=== PATIENT | female | born 1950 | race African-American/Black ===

== ENCOUNTER 2019-02-19 15:11 | Inpatient (IN) ==
[2019-02-19] MEDS ORDERED: AZITHROMYCIN INJ 500 MG in SODIUM CHLORIDE 0.9% 250 ML IV STA (15:30)
[2019-02-19] MEDS ORDERED: ALBUTEROL 2.5 MG/3 ML NEB RESP TX SCH (15:30)
[2019-02-19] MEDS ORDERED: methylPREDNISolone SOD SUC 125 MG/2 ML VIAL IV STA (15:30)
[2019-02-19] MEDS ORDERED: cefTRIAXone 1,000 MG in SODIUM CHLORIDE 0.9% 100 ML IV STA (15:30)
[2019-02-19] MEDS ORDERED: ONDANSETRON 4 MG/2 ML VIAL IV STA (15:30)
[2019-02-19 15:52] LABS: Basophils % 0.2 % (0.0-0.8); Eosinophils # 0.1 10*3/uL (0.0-0.87); Eosinophils % 0.6 % (0.00-10.9); Hematocrit 35.9 VOL% (35.7-47.0); Hemoglobin 11.7 GM/DL (12.0-16.0); Immature Granulocytes % 0.9 %; Immature Granulocytes Absolute 0.09 #; Lymphocytes # 1.9 10*3/uL (1.4-4.0); Lymphocytes % 19.8 % (21.3-54.2); Mean Corpuscular HGB Conc 32.6 GM/DL (32-36); Mean Corpuscular Volume 86.3 FL (87-102); Mean Platelet Volume 9.7 FL (9.6-12.0); Monocytes % 8.8 % (1.7-12.7); Neutrophils % 69.7 % (38.7-73.9); Platelet Count 592 T/CUMM (130-400); Red Blood Count 4.16 MC/CUMM (3.8-5.5); Red Cell Distribution Width 14.4 % (9.3-17.3); White Blood Count 9.6 T/CUMM (4-12)
[2019-02-19 15:58] LABS: Apearance,Urine CLEAR (Clear); Bilirubin,Urine Negative (Negative); Blood, Urine Negative (Negative); Glucose,Urine (UA) Negative (Negative); Ketones,Urine Negative (Negative); Mucus,Urine Occasional /LPF (Occasional); Nitrite,Urine Negative (Negative); Protein,Urine Negative; RBC,Urine <1 /HPF (0-4); Squamous Epithelial Cell,Urine Occasional /HPF (0-10); Urine Color Yellow (Yellow); Urine Urobilinogen < 2.0 EU/DL (0.2-1.0); WBC,Urine 1 /HPF (0-6)
[2019-02-19 16:02] LABS: PT Patient Result 10.7 SECS; Partial Thromboplastin Time 23.7 SECS (0-40)
[2019-02-19 16:08] LABS: Alanine Aminotransferase 52 U/L (13-56); Albumin 3.1 G/DL (3.4-5.0); Alkaline Phosphatase 109 U/L (45-117); Aspartate Amino Transferase 23 U/L (0-37); Bilirubin,Total < 0.39 MG/DL (0.2-1.0); Blood Urea Nitrogen 11 MG/DL (7-18); Calcium 9.3 MG/DL (8.5-10.1); Glucose 114 MG/DL (74-106); Osmolality,Calculated 278.4 MOS/KG (273-304); Total Protein 7.8 G/DL (6.4-8.3); Troponin I < 0.015 NG/ML (0.00-0.045)
[2019-02-19] MEDS ORDERED: POTASSIUM BICARB EFFERVESCENT 25 MEQ TABLET PO ONE (16:25)
[2019-02-19] MEDS ORDERED: ONDANSETRON 4 MG/2 ML VIAL IV PRN (17:25)
[2019-02-19] MEDS ORDERED: ACETAMINOPHEN 325 MG TABLET PO PRN (17:25)
[2019-02-19] MEDS ORDERED: POTASSIUM CHLORIDE 20 MEQ TABLET PO PRN (17:30)
[2019-02-19] MEDS ORDERED: hydrALAZINE 20 MG/1 ML VIAL IV PRN (17:40)
[2019-02-19] MEDS ORDERED: ALBUTEROL 1.25 MG/3 ML NEB RESP TX PRN (17:43)
[2019-02-19 18:20] LABS: ABG Base Excess 2.4 MMOL/L (-2.5-2.5); ABG HCO3 26.5 MMOL/L (20-26); ABG Oxygen Saturation 94.8 % (95-100); ABG PCO2 43.1 MM HG (35-48); ABG PH 7.411 (7.35-7.45); ABG PO2 75.8 MM HG (80-95); ABG TCO2 24.2 MMOL/L (23-27); Allen Test Positive
[2019-02-19] MEDS ORDERED: LEVALBUTEROL 0.63 MG/3 ML NEB RESP TX SCH (19:00)
[2019-02-19] MEDS ORDERED: TUBERCULIN SKIN TEST 0.1 ML SYRINGE INTRADERM ONE (19:00)
[2019-02-19] MEDS: ALBUTEROL/IPRATROPIUM 3 ML NEB RESP TX SCH ×2 (19:14→23:05)
[2019-02-19] MEDS: SODIUM CHLORIDE 0.9% 1,000 ML IV SCH (21:43)
[2019-02-19] MEDS: BENZONATATE 100 MG CAPSULE PO SCH (21:44)
[2019-02-19] MEDS: ROSUVASTATIN 20 MG TABLET PO SCH (21:44)
[2019-02-20] MEDS: ALBUTEROL/IPRATROPIUM 3 ML NEB RESP TX SCH ×6 (03:03→23:40)
[2019-02-20 06:42] LABS: Basophils % 0.2 % (0.0-0.8); Hematocrit 33.3 VOL% (35.7-47.0); Immature Granulocytes % 0.6 %; Immature Granulocytes Absolute 0.07 #; Lymphocytes # 1.1 10*3/uL (1.4-4.0); Lymphocytes % 10.2 % (21.3-54.2); Mean Corpuscular Volume 86.5 FL (87-102); Mean Platelet Volume 10.1 FL (9.6-12.0); Monocytes % 3.3 % (1.7-12.7); Neutrophils % 85.7 % (38.7-73.9); Platelet Count 551 T/CUMM (130-400); Red Blood Count 3.85 MC/CUMM (3.8-5.5); Red Cell Distribution Width 14.6 % (9.3-17.3); White Blood Count 10.9 T/CUMM (4-12)
[2019-02-20 07:14] LABS: Calcium 8.9 MG/DL (8.5-10.1); Osmolality,Calculated 283.3 MOS/KG (273-304); Risk Ratio 3.97; Thyroid Stimulating Hormone 0.507 uIU/ml (0.358-3.74); VLDL CHOLESTEROL 12.6 MG/DL
[2019-02-20] MEDS: PANTOPRAZOLE 40 MG TABLET PO SCH (09:17)
[2019-02-20] MEDS: amLODIPine 10 MG TABLET PO SCH (09:17)
[2019-02-20] MEDS: ENOXAPARIN 40 MG/0.4 ML SYRINGE SUBCUT SCH (09:18)
[2019-02-20] MEDS: BENZONATATE 100 MG CAPSULE PO SCH ×3 (09:18→20:25)
[2019-02-20] MEDS: SODIUM CHLORIDE 0.9% 1,000 ML IV SCH (15:17)
[2019-02-20] MEDS: methylPREDNISolone SOD SUC 40 MG/1 ML VIAL IV SCH (15:17)
[2019-02-20] MEDS: cefTRIAXone 1,000 MG in SYRINGE 1 EACH IV SCH (17:01)
[2019-02-20] MEDS: AZITHROMYCIN INJ 500 MG in SODIUM CHLORIDE 0.9% 250 ML IV SCH (17:04)
[2019-02-20] MEDS: ROSUVASTATIN 20 MG TABLET PO SCH (20:24)
[2019-02-21] MEDS: methylPREDNISolone SOD SUC 40 MG/1 ML VIAL IV SCH ×3 (00:08→21:21)
[2019-02-21] MEDS: ALBUTEROL/IPRATROPIUM 3 ML NEB RESP TX SCH ×6 (03:05→23:56)
[2019-02-21 05:42] LABS: Basophils % 0.2 % (0.0-0.8); Hematocrit 32.8 VOL% (35.7-47.0); Hemoglobin 10.5 GM/DL (12.0-16.0); Immature Granulocytes % 0.7 %; Immature Granulocytes Absolute 0.09 #; Lymphocytes # 1.1 10*3/uL (1.4-4.0); Mean Corpuscular Volume 87.2 FL (87-102); Mean Platelet Volume 9.9 FL (9.6-12.0); Monocytes % 2.1 % (1.7-12.7); Platelet Count 574 T/CUMM (130-400); Red Blood Count 3.76 MC/CUMM (3.8-5.5); Red Cell Distribution Width 14.6 % (9.3-17.3); White Blood Count 13.1 T/CUMM (4-12)
[2019-02-21 06:08] LABS: Calcium 8.9 MG/DL (8.5-10.1)
[2019-02-21] MEDS: SODIUM CHLORIDE 0.9% 1,000 ML IV SCH ×2 (06:21→23:22)
[2019-02-21] MEDS: PANTOPRAZOLE 40 MG TABLET PO SCH (08:26)
[2019-02-21] MEDS: ENOXAPARIN 40 MG/0.4 ML SYRINGE SUBCUT SCH (08:26)
[2019-02-21] MEDS: amLODIPine 10 MG TABLET PO SCH (08:26)
[2019-02-21] MEDS: BENZONATATE 100 MG CAPSULE PO SCH ×3 (08:26→21:21)
[2019-02-21] MEDS: cefTRIAXone 1,000 MG in SYRINGE 1 EACH IV SCH (08:26)
[2019-02-21] MEDS: AZITHROMYCIN INJ 500 MG in SODIUM CHLORIDE 0.9% 250 ML IV SCH (08:31)
[2019-02-21] MEDS: ROSUVASTATIN 20 MG TABLET PO SCH (21:21)
[2019-02-22] MEDS: ALBUTEROL/IPRATROPIUM 3 ML NEB RESP TX SCH ×3 (03:56→10:43)
[2019-02-22 04:44] LABS: Basophils % 0.1 % (0.0-0.8); Hematocrit 31.3 VOL% (35.7-47.0); Hemoglobin 10.2 GM/DL (12.0-16.0); Immature Granulocytes % 0.9 %; Immature Granulocytes Absolute 0.12 #; Lymphocytes # 1.2 10*3/uL (1.4-4.0); Lymphocytes % 8.9 % (21.3-54.2); Mean Corpuscular HGB Conc 32.6 GM/DL (32-36); Mean Corpuscular Volume 86.7 FL (87-102); Monocytes % 2.6 % (1.7-12.7); Neutrophils % 87.5 % (38.7-73.9); Platelet Count 572 T/CUMM (130-400); Red Blood Count 3.61 MC/CUMM (3.8-5.5); Red Cell Distribution Width 15.1 % (9.3-17.3)
[2019-02-22 05:18] LABS: Calcium 8.9 MG/DL (8.5-10.1); Osmolality,Calculated 286.1 MOS/KG (273-304)
[2019-02-22] MEDS ORDERED: amLODIPine 10 MG TABLET PO SCH (09:00)
[2019-02-22] MEDS: PANTOPRAZOLE 40 MG TABLET PO SCH (09:13)
[2019-02-22] MEDS: BENZONATATE 100 MG CAPSULE PO SCH (09:13)
[2019-02-22] MEDS: methylPREDNISolone SOD SUC 40 MG/1 ML VIAL IV SCH (09:13)
[2019-02-22] MEDS: ENOXAPARIN 40 MG/0.4 ML SYRINGE SUBCUT SCH (09:15)
[2019-02-22] MEDS: cefTRIAXone 1,000 MG in SYRINGE 1 EACH IV SCH (09:15)
[2019-02-22 11:43] VITALS: BP 132/63
== END 2019-02-22 12:50 | disposition home or self-care (01) | DRG 195 ==
LOC: EDUNIT# → EDBD → N.ED 15:11 → N.EDINP 17:23 → SUATTDRO 17:23 → N.EDINP 18:26 → N.2E 18:33
PROVIDERS: ADMIT Internal Medicine; ATTEND Internal Medicine Geriatric Medicine